=== PATIENT | female | born 1945 | race Hispanic/Latino ===

== ENCOUNTER 2016-09-03 07:46 | Outpatient (CLI) | payer MEDICARE, OTHER ==
--- NOTE | 2016-09-03 09:56 | Cat Scan Report ---
CT abdomen and pelvis without contrast: Hematuria. Transverse images are obtained from the lower chest to the ischium with coronal and sagittal 2-D reformatted images. The visualized lung bases are clear. The gallbladder has been removed. The abdominal structures otherwise look unremarkable as do the retroperitoneal organs. The kidneys have normal sizes and contours with no stones or masses identified. Scattered mural calcification is present throughout a nondilated abdominal aorta. No periaortic or mesenteric adenopathy appreciated. There are some scattered diverticula a in the colon. The appendix is not identified. No inflammatory changes appreciated. The patient had a hysterectomy. No pelvic masses noted. The unopacified bladder appears partially contracted and unremarkable. Unremarkable bony structures. Impression: No urinary tract pathology identified. Diverticulosis.
== END 2016-09-03 07:47 | disposition home or self-care (01) ==
LOC: CT 07:46
PROVIDERS: ATTEND Urology
DX: K57.30 Diverticulosis of large intestine without perforation or abscess without bleeding (principal); R31.9 Hematuria, unspecified; I70.0 Atherosclerosis of aorta; N32.89 Other specified disorders of bladder; Z90.49 Acquired absence of other specified parts of digestive tract; Z90.710 Acquired absence of both cervix and uterus
CPT/HCPCS: 74176

== ENCOUNTER 2016-09-15 13:00 | Day surgery (SDC) | payer MEDICARE ==
[~2016-09-15 13:00] MED LIST: ANCEF/STERILE WATER 2 GM/20 ML 2 GM/20 ML SYRINGE IV NR
--- NOTE | 2016-09-15 14:35 | Anesthesia Consultation ---
Anesthesia Consult and Med Hx Date of service: 09/15/16 - Airway Anesthetic Teeth Evaluation: Good ROM Head & Neck: Adequate Mental/Hyoid Distance: Adequate Mallampati Class: Class II Intubation Access Assessment: Probably Good - Pulmonary Exam CTA: Yes - Cardiac Exam Cardiac Exam: RRR - Pre-Operative Health Status ASA Pre-Surgery Classification: ASA2 Proposed Anesthetic Plan: General - Pulmonary Hx Smoking: No Hx Respiratory Symptoms: Yes (H/O pulmonary embolism, not on anticoagulents.) Hx Sleep Apnea: No (SILVA PRE SCREEN LOW RISK) - Cardiovascular System Hx Hypertension: No - Other Systems Hx Cancer: No
[2016-09-15] MEDS ORDERED: DILAUDID IV PRN (14:37)
[2016-09-15] MEDS ORDERED: NACL BACTERIOSTATIC INFILTRATI ONE (14:38)
[2016-09-15] MEDS ORDERED: NORCO 5/325 PO PRN ×2 (14:42→17:53)
[2016-09-15] MEDS ORDERED: ZOFRAN IV PRN (14:43)
[2016-09-15] MEDS ORDERED: VERSED IV NR (15:00)
[2016-09-15] MEDS ORDERED: XYLOCAINE MPF 2% ONE (15:00)
[2016-09-15] MEDS ORDERED: PEPCID PO NR (15:00)
[2016-09-15] MEDS ORDERED: LACTATED RINGERS 1,000 ML IV SCH (15:00)
--- NOTE | 2016-09-15 16:06 | Post Operative Note ---
Pre-op diagnosis: int cystitis Post-op diagnosis: same Findings: as above no sig glomerulations or ulccers Procedure: cysto dilation hydro Anesthesia: GETA Surgeon: RITCHIE VILLALPANDO Estimated blood loss: none Condition: stable Disposition: PACU
--- NOTE | 2016-09-15 16:09 | Discharge Summary ---
Short Stay Discharge Plan Activity: other (no straining ) Weight Bearing Status: Full Weight Bearing Diet: regular, low salt Special Instructions: other (inc fluids ) Follow up with: SAM SONG MD [Primary Care Provider] - 7 Days RITCHIE VILLALPANDO MD [Staff Physician] - 14 Days
[2016-09-15] MEDS ORDERED: SUBLIMAZE ONE (16:13)
[2016-09-15] MEDS ORDERED: DIPRIVAN 10 MG/ML IV ONE (16:14)
[2016-09-15] MEDS ORDERED: VERSED ONE (16:19)
[2016-09-15] MEDS ORDERED: ePHEDrine SULFATE ONE (16:26)
[2016-09-15] MEDS ORDERED: NACL 0.9% IR ONE (16:31)
[2016-09-15] MEDS ORDERED: OMNIPAQUE 300 MG/50 ML (CATH LAB) IV ONE (16:31)
[2016-09-15] MEDS ORDERED: WATER FOR IRRIG STERILE IR ONE (16:31)
[2016-09-15] MEDS ORDERED: ZOFRAN ONE (16:32)
[2016-09-15] MEDS ORDERED: DECADRON ONE (16:32)
--- NOTE | 2016-09-15 17:20 | Post Anesthesia Evaluation ---
- Post Anesthesia Evaluation Patient Participated: Yes Airway Patent: Yes Stable Respiratory Function: Yes Temp > 96.8F: Yes Pain Manageable: Yes Adequeate Hydration: Yes Anesthesia Complications: No Block Receding Appropriately: Not Applicable
[2016-09-15 21:14] VITALS: BP 136/88
--- NOTE | 2016-09-15 21:44 | Operative Report ---
PREOPERATIVE DIAGNOSES: History of chronic cystitis and interstitial cystitis. POSTOPERATIVE DIAGNOSES: Markedly improved IC, chronic cystitis. PROCEDURE: Cystoscopy, retrograde, hydrodistention x2. SURGEON: Gael Mulligan MD ANESTHESIA: General. FINDINGS: This is a woman with history of IC. She now presents with significant flare for cystoscopy hydrodistention. DESCRIPTION OF PROCEDURE: The patient brought to the operating room and placed on the operating table. Following induction of anesthesia, placed in lithotomy position, prepped and draped in usual sterile fashion. Cystourethroscopy showed no lesions. The epithelium was normal. Retrograde ____ delicate collecting system with good drainage and some air bubbles mostly on the right. At this point, hydrodistention, the first accommodated 800 mL, second about 950 mL without any glomerulations of significance or ulceration. The patient tolerated the procedure well. Bimanual exam showed no palpable masses. The family was notified, brought to recovery in stable condition. JOB# [id number] DAVID/MEENA
--- NOTE | 2016-09-16 07:33 | Fluoroscopy Report ---
RETROGRADE PYELOGRAM: History: Chronic cystitis, hematuria. Fluoroscopy was provided by radiology during retrograde urography by urology. 7 fluoroscopic images were captured. Cystoscopy was also performed per the operative notes. There is adequate filling of the ureters and intrarenal collecting systems with no filling defects or anatomic abnormalities identified. Impression: No abnormality identified.
== END 2016-09-15 19:00 | disposition home or self-care (01) ==
LOC: OR 13:00
PROVIDERS: ATTEND Urology
DX: N30.10 Interstitial cystitis (chronic) without hematuria (principal); Z86.711 Personal history of pulmonary embolism; Z91.040 Latex allergy status
CPT/HCPCS: 52260; 74420; A4217; C1758; J0690; J1100; J2250; J2405; J2704; J3010; J7120; Q9967